=== PATIENT | male | born 2000 | race Caucasian/White ===

== ENCOUNTER 2019-05-30 20:23 | Emergency (ER) | payer MEDICAID ==
[~2019-05-30] VITALS: Ht 152.4 cm; Wt 55.3 kg
[2019-05-30 20:32] VITALS: BP_SYST 120
--- NOTE | 2019-05-30 20:38 | NUR ---
Patient triaged and placed in waiting room. VSS and patient appears in no acute distress at this time. Accompanied by self, awaiting available bed, and MD notified of need for MSE.
--- NOTE | 2019-05-30 22:20 | NUR ---
Patient to ER bed 2 to gown for evaluation. Side rails up. Report given to MANFRED Moran.
--- NOTE | 2019-05-30 22:30 | NUR ---
Patient arrived from home [id number] and able to verbalize his needs. Complaints of falling while riding his skateboard. Injury to the right hand. Pain of 8/10 rated to the hand. Denies any fever, chill, N/V, or fever.
[2019-05-30] MEDS ORDERED: ACETAMINOPHEN 325 MG TABLET PO ONE (23:15)
[2019-05-31] VITALS: BP_SYST 120
--- NOTE | 2019-05-31 | NUR ---
Patient given written and verbal discharge instructions and verbalizes understanding. ER MD discussed with patient the results and treatment provided. Patient in stable condition. ID arm band removed. Rx of Ibuprofen given. Patient educated on pain management and to follow up with PMD. Pain Scale 0. Opportunity for questions provided and answered. Medication side effect fact sheet provided.
== END 2019-05-31 | disposition home or self-care (01) ==
LOC: SED 20:23
DX: S63.91XA Sprain of unspecified part of right wrist and hand, initial encounter (principal); V00.131A Fall from skateboard, initial encounter; Y93.51 Activity, roller skating (inline) and skateboarding; Y92.89 Other specified places as the place of occurrence of the external cause; Y99.8 Other external cause status
CPT/HCPCS: 99283